=== PATIENT | female | born 1985 | race Caucasian/White ===

== ENCOUNTER 2017-03-16 12:18 | Day surgery (SDC) | payer OTHER ==
[~2017-03-16] VITALS: Ht 157.5 cm; Wt 99.8 kg
[~2017-03-16 12:18] MED LIST: NO MEDS
[2017-03-16 12:39] VITALS: Ht 157.5 cm; Wt 99.8 kg
[2017-03-16] MEDS ORDERED: PROPOFOL 20 ML ONE (12:45)
[2017-03-16 12:53] VITALS: BP 132/79; PULSE 77; RESP 18
--- NOTE | 2017-03-16 13:15 | OPPN ---
Date/Time of Note Date/Time of Note DATE: 03/16/17 TIME: 13:14 Operative Report Preoperative Diagnosis Abdominal pain Chronic heartburn Postoperative Diagnosis Gastroesophageal reflux disease Gastritis with erosions Operation/Procedure Performed Esophagogastroduodenoscopy and biopsy Surgeon see signature line community program assistant None Anesthesia: MAC Estimated blood loss: none Transfusion Required none Specimen Gastric mucosal biopsy Grafts/Implants none Complications none VINCE MACIAS MD Mar 16, 2017 13:15
[2017-03-16 13:35] VITALS: BP 115/66; RESP 14
--- NOTE | 2017-03-17 05:28 | GILP ---
DATE OF PROCEDURE: NAME OF PROCEDURE: Esophagogastroduodenoscopy and biopsy. SURGEON: Vince Limon MD PREOPERATIVE DIAGNOSES: 1. Abdominal pain. 2. Chronic heartburn. POSTOPERATIVE DIAGNOSES: 1. Gastroesophageal reflux disease. 2. Gastritis with erosions. 3. Gastric mucosal biopsies were taken for Helicobacter pylori test. INDICATION FOR THE PROCEDURE: Ms. Cat is a 31-year-old female patient who had upper abdominal pain and chronic heartburn, not responding to therapy. The patient was scheduled for endoscopic ex amination for further evaluation. The procedure and possible complications are well explained to the patient. She understood and cons ented to the procedure. DESCRIPTION OF PROCEDURE: Under the influence of anesthesia, the gastroscope was carefully introduc ed into the esophagus and under direct vision it was advanced to the stomach and through the pylorus into the duodenal bulb and descending duodenum. FINDINGS: ESOPHAGUS: The patient had gastroesophageal reflux disease. STOMACH: She had gastritis with erosions. Gastric mucosal biopsies were taken for H. pylori test. DUODENUM: Normal. The patient tolerated the procedure very well and there was no complication from the procedure. At the end of the procedure, she was awake with stable vital signs and she was discharged home to the [facility] of her family. IMPRESSION: Please see postoperative diagnoses. PLAN: 1. Omeprazole 40 mg p.o. q.a.m. 2. Await H. pylori test report. Dictated By: VINCE ALEX/KEE Conf#: [id number] DID#: [id number]
--- NOTE | 2017-03-18 07:54 | CONS ---
DATE OF ADMISSION: 03/16/2017 DATE OF CONSULTATION: PATIENT NAME: QUINTON BUSTAMANTE TYPE OF CONSULTATION: Preoperative gastroenterology. I thank you very much for this kind referral. HISTORY OF PRESENT ILLNESS: Ms. Stephania Bustamante is a 31-year-old female patient who has been refer red to me for further evaluation of abdominal pain and change in the bowel habit. The patient state s she has got epigastric pain and chronic heartburn, not responding to therapy. There is no past hi story of peptic ulcer disease. She is not taking any nonsteroidal anti-inflammatory agents. Her ap petite has been good, and she is not losing any weight. No history of gallstones or liver disease. The patient also complains of constipation, no rectal bleeding. She feels bloated. No past histor y of inflammatory bowel disease or colon neoplasm, not a hypertensive or diabetic. No heart disease , lung problem or kidney disease, nonsmoker. No alcohol abuse, no family history of gastrointestina l tract neoplasm. ALLERGIES: NONE. MEDICATIONS: None. PHYSICAL EXAMINATION: GENERAL: She is 5 feet 2 inches tall and weighs 217 pounds, normal heart sounds. LUNGS: Clear. ABDOMEN: Soft. No masses. Normal bowel sounds. NEUROLOGIC: Normal exam. IMPRESSION: 1. Upper abdominal pain and chronic heartburn, not responding to therapy. 2. Constipation and bloating. PLAN: 1. Linzess 145 mcg p.o. daily a.m. before breakfast. 2. Endoscopic examination for further evaluation. The procedure and possible complications are well explained to the patient. She understands and con sents to the procedure. Because of the obesity with a short thick neck, she needs monitored anesthesia care. I thank you once again. With warmest personal regards, Dictated By: VINCE ALEX/KEE Conf#: [id number] DID#: [id number]
== END 2017-03-16 14:21 | disposition home or self-care (01) ==
LOC: GIL 12:18
PROVIDERS: ATTEND Internal Medicine Gastroenterology
DX: R12 Heartburn (principal); K21.9 Gastro-esophageal reflux disease without esophagitis; K29.60 Other gastritis without bleeding
CPT/HCPCS: 43239; 84703; Z7610; 87081